=== PATIENT | male | born 1960 | race American Indian/Alaskan Native ===

== ENCOUNTER 2018-08-29 07:01 | Emergency (ER) | payer SELFPAY ==
[2018-08-29 08:08] VITALS: BP 166/102
--- NOTE | 2018-08-29 09:14 | Emergency Department Report ---
Chief Complaint: High BP Stated Complaint: BP Time Seen by Provider: 08/29/18 08:10 - HPI History of Present Illness: This is a 58-year-old male with a history of hypertension uncontrolled due to him not have than prescription) K doctor. Patient states recently he is going back to work and was given his physical done at the urgent care when he was so his blood pressure was elevated. Patient states he has been out of his medication for a long time and has not been taking. Patient states at the moment is not indicated. Referrals. At the moment patient denies fever assess chills/nausea vomiting/abdominal pain/chest pain/shortness of breath/headache/blurred vision - ROS Review of Systems: As noted in HPI - Exam Vital Signs: Vital Signs 08/29/18 08:06 Temperature 97.8 F Pulse Rate 90 Respiratory 20 Rate Blood Pressure 166/102 O2 Sat by Pulse 97 Oximetry Physical Exam: GENERAL: Alert and oriented x3, no apparent distress, Normal Gait, atraumatic. HEAD: Head is normocephalic and a-traumatic. EYES: Extra ocular muscles are intact. Pupils are equal, round, and reactive to light and accommodation. NECK: Supple. Non edematous, No carotid bruits. No lymphadenopathy or thyromegaly. No C-spine tenderness LUNGS: Symetrical with respiration, No wheezing, no rales or crackles, CTAB. HEART: S1, S2 present, regular rate and rhythm without murmur, no rubs, no gallops. Non tender to palpation ABDOMEN: No organomegaly was noted,Positive bowel sounds, soft, and non- distended. . Nontender to palpation on all Quadrants, NO CVA tenderness. SKIN: Warm and dry, No lesions, No ulceration or induration present. MSE screening note: Focused history and physical exam performed. Due to findings the following was ordered: ED Medical Decision Making - Medical Decision Making This is a 62-year-old male presents with elevated blood pressure here for medication refill Patient did not exhibit any symptoms. he understands instructions and states he will follow up with primary care physician. She is beginning clear sentences and no acute or respiratory distress ED Disposition for MSE Clinical Impression: Uncontrolled hypertension Disposition: DC-01 TO HOME OR SELFCARE Is pt being admited?: No Does the pt Need Aspirin: No Condition: Stable Instructions: Hypertension (ED) Additional Instructions: Make sure to follow up with the primary care physician as discussed. Take all your medications as you've been prescribed. If you have any worsening symptoms or develop new symptoms please return to ED immediately. Prescriptions: Atenolol [Tenormin] 50 mg PO DAILY #40 tab Lisinopril/Hydrochlorothiazide [Zestoretic 20-25 mg] 1 tab PO QDAY #40 tab Referrals: LOI MERINO [Primary Care Provider] - 3-5 Days [facility] [Provider Group] - 3-5 Days [facility] [Provider Group] - 3-5 Days [facility] [Outside] - 3-5 Days [facility] [Outside] - 3-5 Days Forms: Work/School Release Form(ED) Time of Disposition: 09:15
== END 2018-08-29 09:21 | disposition home or self-care (01) ==
LOC: ED 07:01
DX: I10 Essential (primary) hypertension (principal)
CPT/HCPCS: 99282

== ENCOUNTER 2018-09-05 07:38 | Emergency (ER) | payer SELFPAY ==
--- NOTE | 2018-09-05 09:12 | Emergency Department Report ---
ED General Adult HPI - General Chief complaint: High BP Stated complaint: HIGH BP Time Seen by Provider: 09/05/18 08:24 Source: patient Mode of arrival: Ambulatory Limitations: No Limitations - History of Present Illness Initial comments: This 58-year-old male nontoxic, well nourished in appearance, no acute signs of distress presents to the ED with c/o of elevated b/p. Patient stated that he went to a physical exam work and was told that he has hypertension. Patient is taking his amlodipine and lisinopril/HCTZ. Patient denies any headaches, chest pain, shortness of breath, fever, chills, nausea, vomiting, numbness or tingling. Patient denies any allergies significant past medical history. -: days(s) Radiation: non-radiation Severity scale (0 -10): 0 Improves with: none Worsens with: none Associated Symptoms: denies other symptoms. denies: confusion, chest pain, cough, diaphoresis, fever/chills, headaches, loss of appetite, malaise, nausea/vomiting, rash, seizure, shortness of breath, syncope, weakness Treatments Prior to Arrival: none - Related Data Previous Rx's Medication Instructions Recorded Last Taken Type Atenolol [Tenormin] 50 mg PO DAILY #40 tab 08/29/18 Unknown Rx Lisinopril/Hydrochlorothiazide 1 tab PO QDAY #40 tab 08/29/18 Unknown Rx [Zestoretic 20-25 mg] Allergies Allergy/AdvReac Type Severity Reaction Status Date / Time No Known Allergies Allergy Verified 09/05/18 07:39 ED Review of Systems ROS: Stated complaint: HIGH BP Other details as noted in HPI Constitutional: denies: chills, fever Eyes: denies: eye pain, eye discharge, vision change ENT: denies: ear pain, throat pain Respiratory: denies: cough, shortness of breath, wheezing Cardiovascular: denies: chest pain, palpitations Endocrine: no symptoms reported Gastrointestinal: denies: abdominal pain, nausea, diarrhea Genitourinary: denies: urgency, dysuria Musculoskeletal: denies: back pain, joint swelling, arthralgia Skin: denies: rash, lesions Neurological: denies: headache, weakness, paresthesias Psychiatric: denies: anxiety, depression Hematological/Lymphatic: denies: easy bleeding, easy bruising ED Past Medical Hx - Past Medical History Hx Hypertension: Yes - Surgical History Past Surgical History?: No - Social History Smoking Status: Current Every Day Smoker Substance Use Type: None - Medications Home Medications: Home Medications Medication Instructions Recorded Confirmed Last Taken Type Atenolol [Tenormin] 50 mg PO DAILY #40 tab 08/29/18 Unknown Rx Lisinopril/Hydrochlorothiazide 1 tab PO QDAY #40 tab 08/29/18 Unknown Rx [Zestoretic 20-25 mg] ED Physical Exam - General Limitations: No Limitations General appearance: alert, in no apparent distress - Head Head exam: Present: atraumatic, normocephalic - Eye Eye exam: Present: normal appearance - Extremities Exam Extremities exam: Present: normal inspection, full ROM - Back Exam Back exam: Present: normal inspection, full ROM - Neurological Exam Neurological exam: Present: alert, oriented X3 - Psychiatric Psychiatric exam: Present: normal affect, normal mood - Skin Skin exam: Present: warm, dry, intact, normal color. Absent: rash ED Course Vital Signs 09/05/18 07:40 Temperature 97.8 F Pulse Rate 81 Respiratory 16 Rate Blood Pressure 148/73 O2 Sat by Pulse 95 Oximetry - Reevaluation(s) Reevaluation #1: 09/05/18 09:09 Patient is speaking in full sentences with no signs of distress noted. ED Medical Decision Making - Medical Decision Making This is a 58-year-old male that presents with hypertension. Patient is stable and was examined by me. Blood pressure is 148/73. Patient is currently taking medications. I instructed and educated patient that he should continue taking his medication and to follow up with a primary care doctor. Patient was instructed for a low sodium diet. Patient was also instructed to keep a daily diary of blood pressure and presented to primary care doctor. Patient was referred to Follow-up with a primary care doctor in 3-5 days or if symptoms worsen and continue return to emergency room as soon as possible. At time of discharge, the patient does not seem toxic or ill in appearance. No acute signs of distress noted. Patient agrees to discharge treatment plan of care. No further questions noted by the patient. Critical care attestation.: If time is entered above; I have spent that time in minutes in the direct care of this critically ill patient, excluding procedure time. ED Disposition Clinical Impression: HTN (hypertension) Disposition: DC-01 TO HOME OR SELFCARE Is pt being admited?: No Does the pt Need Aspirin: No Condition: Stable Instructions: Hypertension (ED) Additional Instructions: Follow-up with a primary care doctor in 3-5 days or if symptoms worsen and continue return to emergency room as soon as possible. Keep a daily diary of your blood pressure and presented to primary care doctor. Referrals: PRIMARY CARE, [Referring] - 3-5 Days WALKER MARTIN MD [Staff Physician] - 3-5 Days [facility] [Outside] - 3-5 Days [facility] [Outside] - 3-5 Days Forms: Work/School Release Form(ED)
[2018-09-05 09:49] VITALS: BP 141/70
== END 2018-09-05 09:47 | disposition home or self-care (01) ==
LOC: ED 07:38
DX: I10 Essential (primary) hypertension (principal); F17.200 Nicotine dependence, unspecified, uncomplicated
CPT/HCPCS: 99282